=== PATIENT | male | born 1955 | race Caucasian/White ===

== ENCOUNTER 2025-08-25 08:24 | Day surgery (SDC) | payer MEDICAID ==
[2025-08-25] MEDS ORDERED: Midazolam 1 MG/ML 2 ML SDV ONE (09:00)
[2025-08-25] MEDS ORDERED: Propofol 200 MG/20 ML SDV ONE (09:00)
[2025-08-25] MEDS ORDERED: fentaNYL 50 MCG/ML SDV ONE (09:00)
[2025-08-25] MEDS: Lactated Ringers 1,000 ML IV SCH (09:02)
[2025-08-25 11:28] VITALS: BP 128/86; PULSE 77
== END 2025-08-25 11:40 | disposition home or self-care (01) ==
LOC: JP.SDS 08:24
PROVIDERS: ATTEND Surgery
DX: Z12.11 Encounter for screening for malignant neoplasm of colon (principal); I10 Essential (primary) hypertension; E78.00 Pure hypercholesterolemia, unspecified; E11.9 Type 2 diabetes mellitus without complications; Z79.84 Long term (current) use of oral hypoglycemic drugs; Z79.82 Long term (current) use of aspirin; Z68.30 Body mass index [BMI] 30.0-30.9, adult; Z79.899 Other long term (current) drug therapy; Z86.0100 Personal history of colon polyps, unspecified
CPT/HCPCS: J2250; J2704; J3010; J7120